=== PATIENT | male | born 2000 | race African-American/Black ===

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

== ENCOUNTER 2019-10-07 10:00 | Emergency (ER) | payer MEDICAID ==
[~2019-10-07] VITALS: Ht 175.3 cm; Wt 67.1 kg
[2019-10-07 10:41] VITALS: BP 108/49
== END 2019-10-07 10:52 | disposition home or self-care (01) ==
LOC: ER 10:00
DX: F20.9 Schizophrenia, unspecified (principal); Z76.0 Encounter for issue of repeat prescription

== ENCOUNTER 2019-12-21 13:17 | Emergency (ER) | payer MEDICAID ==
[~2019-12-21] VITALS: Ht 177.8 cm; Wt 69.9 kg
[2019-12-21 13:29] VITALS: BP 113/57
== END 2019-12-21 14:04 | disposition home or self-care (01) ==
LOC: ER 13:17
DX: F20.9 Schizophrenia, unspecified (principal); Z76.0 Encounter for issue of repeat prescription

== ENCOUNTER 2020-01-31 12:04 | Emergency (ER) | payer MEDICAID ==
[~2020-01-31] VITALS: Ht 177.8 cm; Wt 68.0 kg
[2020-01-31 12:28] VITALS: BP 112/53
== END 2020-01-31 14:20 | disposition home or self-care (01) ==
LOC: ER 12:04
DX: F20.9 Schizophrenia, unspecified (principal); Z76.0 Encounter for issue of repeat prescription

== ENCOUNTER 2020-03-18 14:10 | Emergency (ER) | payer MEDICAID ==
[~2020-03-18] VITALS: Ht 177.8 cm; Wt 81.6 kg
[2020-03-18 15:49] VITALS: BP 120/48
== END 2020-03-18 16:48 | disposition home or self-care (01) ==
LOC: ER 14:10
DX: F20.9 Schizophrenia, unspecified (principal); Z76.0 Encounter for issue of repeat prescription

== ENCOUNTER 2020-06-14 19:08 | Emergency (ER) | payer MEDICAID ==
[~2020-06-14] VITALS: Ht 177.8 cm; Wt 83.0 kg
[2020-06-15 00:29] VITALS: BP 125/82
== END 2020-06-15 00:02 | disposition home or self-care (01) ==
LOC: ER 19:08
DX: F20.9 Schizophrenia, unspecified (principal); Z76.0 Encounter for issue of repeat prescription